=== PATIENT | male | born 1965 | race Caucasian/White ===

== ENCOUNTER 2016-09-04 10:21 | Emergency (ER) | payer BC ==
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
[2016-09-04 10:49] VITALS: BP 131/75; PULSE 63; RESP 16; TEMP 98.7; O2SAT 100
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
== END 2016-09-04 11:59 | disposition home or self-care (01) ==
LOC: ED 10:21 → MERGE 10:21 → ED 11:59
DX: M54.5 Low back pain (principal)